=== PATIENT | male | born 1945 | race Caucasian/White ===

== ENCOUNTER 2017-10-17 10:00 | Day surgery (SDC) | payer MEDICARE ==
[2017-10-17 10:51] VITALS: BMI 29.7
--- NOTE | 2017-10-17 11:00 | HP ---
History & Physical Update - History History: No Change - Physical Physical: No Change - Assessment Currently as noted:: umbilical hernia - Plan Currently as noted:: hernia repair; r/b/t/a's d/w patient pre-op including possible recurrence.
[2017-10-17] MEDS ORDERED: ceFAZolin SODIUM 1 GM VIAL ONE (11:28)
[2017-10-17] MEDS ORDERED: LIDOCAINE HCL/PF 2% SDV 5ML VIAL ONE (11:28)
[2017-10-17] MEDS ORDERED: PROPOFOL 20 ML ONE (11:28)
[2017-10-17] MEDS ORDERED: ROCURONIUM BROMIDE 50 MG/5 ML VIAL ONE (11:28)
[2017-10-17] MEDS ORDERED: MIDAZOLAM HCL 2 MG/2 ML SINGLE DOSE VIAL ONE (11:29)
[2017-10-17] MEDS ORDERED: ceFAZolin SODIUM 1 GM VIAL IVPB ONE (11:51)
[2017-10-17] MEDS ORDERED: LIDOCAINE HCL 1%, 10 MG/ML (20ML VIAL) ONE (11:59)
[2017-10-17] MEDS ORDERED: BUPIVACAINE HCL/PF 0.5% (5MG/ML) 10 ML VIAL ONE (12:00)
[2017-10-17] MEDS ORDERED: DEXAMETHASONE SOD PHOSPHATE 4 MG/1 ML VIAL ONE (12:14)
[2017-10-17] MEDS ORDERED: BUPIVACAINE HCL/PF 0.5% (5MG/ML) 10 ML VIAL IJ ONE ×2 (12:16)
[2017-10-17] MEDS ORDERED: LIDOCAINE HCL 1%, 10 MG/ML (50 mL VIAL) IJ ONE ×2 (12:16)
[2017-10-17] MEDS ORDERED: NEOSTIGMINE METHYLSULFATE 0.5 MG/ML - 10 ML MDV ONE (12:27)
[2017-10-17] MEDS ORDERED: GLYCOPYRROLATE 0.2 MG/1 ML VIAL ONE (12:27)
[2017-10-17] MEDS ORDERED: oxyCODONE HCL 5 MG TABLET PO PRN (12:37)
[2017-10-17] MEDS ORDERED: ONDANSETRON 4 MG/2 ML VIAL IVPUSH PRN (12:37)
[2017-10-17] MEDS ORDERED: IBUPROFEN 800 MG/8 ML IJ IVPB PRN (12:37)
[2017-10-17] MEDS ORDERED: LACTATED RINGERS SOLUTION 1,000 ML IV SCH (12:45)
--- NOTE | 2017-10-17 13:01 | OP ---
Operative Note - Note: Operative Date: 10/17/17 Pre-Operative Diagnosis: umbilical hernia Operation: repair umbilical hernia Findings: 2.0 cm. defect at the umbilicus Post-Operative Diagnosis: Same as Pre-op Surgeon: Oh Bryan Anesthesiologist/SALSA DANCE INSTRUCTOR: Keily Matthews Anesthesia: General Specimens Removed: hernia sac and fat Estimated Blood Loss (mls): 10
[2017-10-17 13:39] VITALS: TEMP 97.7
[2017-10-17] MEDS ORDERED: ACETAMINOPHEN WITH CODEINE 300MG/30MG TABLET PO PRN (13:44)
[2017-10-17 19:32] VITALS: BP 164/77; PULSE 59
--- NOTE | 2017-10-18 11:24 | OP ---
DATE OF OPERATION: 10/17/2017 PREOPERATIVE DIAGNOSIS: Umbilical hernia. POSTOPERATIVE DIAGNOSIS: Umbilical hernia. PROCEDURE: Repair of umbilical hernia. SURGEON: Oh Bryan MD ANESTHESIA: General. OPERATIVE FINDINGS: There was a 2-cm defect at the umbilicus containing preperitoneal fat. The rest of the findings were unremarkable. DESCRIPTION OF PROCEDURE: The patient was placed on the operating table in supine position, and after the induction of general anesthesia, the abdomen was prepped with ChloraPrep and draped in sterile fashion. A time-out was taken, and then, an infraumbilical skin crease incision was made from the 3 to 9 o'clock position using the scalpel after the operative field was infiltrated with 1% Xylocaine and 0.5% Marcaine in equal concentration. The incision was taken down to the abdominal wall, and the umbilical stalk was bluntly encircled. The umbilicus was dissected off the sac. Redundant sac and preperitoneal fat were excised using electrocautery and sent for pathological examination. Hemostasis was secured with electrocautery. Then , the hernia was repaired with multiple 0 Ti-Cron horizontal mattress sutures. The operative field was further infiltrated with 1% Xylocaine and 0.5% Marcaine and irrigated with saline, and hemostasis secured. The umbilicus was then tacked down to the abdominal wall using interrupted 2-0 Vicryl. The deep dermis was reapproximated with interrupted 3-0 Vicryl, and the skin edges with 4-0 Monocryl in a subcuticular continuous fashion. Steri-Strips and dry sterile dressings were placed, and the procedure was terminated at this point, and the patient aroused from general anesthesia and transferred to the post-anesthesia care unit in stable condition, awake and alert. ESTIMATED BLOOD LOSS: 10 mL. REPLACEMENTS: Crystalloid. DRAINS: None. SPECIMENS: Sac and preperitoneal fat to Pathology. I, Oh Bryan MD, was physically present in the operating room from the time the patient was placed on the operating table until he was transferred to the post-anesthesia care unit in my accompaniment. MD LATASHA Maldonado/[id number] MTDD
--- NOTE | 2017-10-23 11:18 | PATH ---
Surgical Pathology Report Patient Name: DEBBY MOSER [facility]. Rec. #: [id number] /Age/Gender: 1945 (Age: 72) / M Account: [id number] Location: [facility] SURGICAL Taken: 10/17/2017 Received: 10/17/2017 Reported: 10/23/2017 Physicians: Oh Bryan MD Specimen(s) Received UMBILICAL HERNIA SAC AND FAT Clinical History Umbilical hernia Final Diagnosis UMBILICAL HERNIA SAC AND FAT, EXCISION: MESOTHELIAL LINED FIBROADIPOSE TISSUE CONSISTENT WITH HERNIA SAC AND CONTENTS. Electronically Signed Carrol Montelongo M.D. Gross Description Received in formalin labeled "umbilical hernia sac and fat," is a 2.8 x 2.0 x 0.3 cm aggregate of yellow, lobulated adipose tissue and gonzalez-brar fibrous tissue. The specimen is entirely submitted in one cassette. /10/18/201710/18/2017
== END 2017-10-17 19:15 | disposition home or self-care (01) ==
LOC: JASU-SURG 10:00
PROVIDERS: ATTEND Surgery
PROC: 0WQF0ZZ Repair Abdominal Wall, Open Approach (ICD-10-PCS; principal; 2017-10-17 12:00)
DX: K42.9 Umbilical hernia without obstruction or gangrene (principal)
CPT/HCPCS: 88302-TC; 94760

== ENCOUNTER 2024-11-20 05:29 | Day surgery (SDC) | payer OTHER ==
[2024-11-17 15:03] VITALS: BMI 28.3
[2024-11-20] MEDS ORDERED: SIMETHICONE 40 MG/0.6 ML BOTTLE ONE (07:38)
[2024-11-20 09:13] VITALS: RESP 16; TEMP 97.3
[2024-11-20 09:41] VITALS: BP 112/81; PULSE 48
== END 2024-11-20 10:10 | disposition home or self-care (01) ==
LOC: JASU-ENDO 05:29
PROVIDERS: ATTEND Internal Medicine Gastroenterology
PROC: 0DBL8ZX Excision of Transverse Colon, Via Natural or Artificial Opening Endoscopic, Diagnostic (ICD-10-PCS; 2024-11-20)
PROC: 0DBN8ZX Excision of Sigmoid Colon, Via Natural or Artificial Opening Endoscopic, Diagnostic (ICD-10-PCS; principal; 2024-11-20 08:00)
DX: Z12.11 Encounter for screening for malignant neoplasm of colon (principal); D12.3 Benign neoplasm of transverse colon; D12.4 Benign neoplasm of descending colon; Z86.0100 Personal history of colon polyps, unspecified
CPT/HCPCS: 88305-TC